=== PATIENT | male | born 1995 | race Caucasian/White ===

== ENCOUNTER 2018-05-16 18:26 | Emergency (ER) | payer MEDICAID ==
[~2018-05-16] VITALS: Ht 175.3 cm; Wt 95.3 kg
[~2018-05-16 18:26] MED LIST: NO HOME MEDS; RANI-366 PO; ZOLP10TA PO
[2018-05-16 18:34] VITALS: BP 148/57
[2018-05-16] MEDS ORDERED: PENI500T2 PO (19:50)
== END 2018-05-16 20:01 | disposition home or self-care (01) ==
LOC: ER 18:26
DX: K08.89 Other specified disorders of teeth and supporting structures (principal); Z79.899 Other long term (current) drug therapy; Z90.49 Acquired absence of other specified parts of digestive tract; Z98.890 Other specified postprocedural states
CPT/HCPCS: 99283